=== PATIENT | female | born 1950 | race Caucasian/White ===

== ENCOUNTER → 2017-10-07 | Outpatient (CLI) | payer OTHER ==
[~2017-10-07] VITALS: Ht 161.3 cm; Wt 146.8 kg
[~2017-10-07] MED LIST: CHLORHEXIDINE GLUCONATE 2 % 1 PACK (2 CLOTHS) TOPICAL PRN; COMB0.2S EACH EYE; DORZ2SOL EACH EYE; INSULIN HUMAN REGULAR 1,000 UNITS/10 ML VIAL SQ PRN; LACTATED RINGER'S 1000 ML IV PRN; LIDOCAINE HCL 1% PF 5 ML SYRINGE OTHER ONE; METOPROLOL TARTRATE 25 MG TAB PO PRN; MONT10TA2 PO; NEXI40CA PO; POVIDONE IODINE 5% (ANTISEPSIS KIT) 4 APPLICATIONS EACH NARE PRN; PRED1SUS EACH EYE; PROPOFOL 200 MG/20 ML AMP IV ONE; SODIUM CHLORID 0.9% 500 ML IV PRN; TIMO0.5S30 EACH EYE; VITA250C3 CHEW; ZOLO50TA PO
[2017-10-07 11:03] VITALS: BP 124/72; PULSE 82; RESP 20; TEMP 97.9; O2SAT 95
--- NOTE | 2017-10-07 13:47 | MR ---
cc: Sergei Hooks MD, Gohar S MD 10/07/2017 PREOPERATIVE DIAGNOSIS: Colon cancer screening. POSTOPERATIVE DIAGNOSIS: Normal colonoscopy. PROCEDURE: Total colonoscopy. SURGEON: Sergei Hooks MD ANESTHESIA: MAC. INDICATION: This is a 67-year-old who has had a minor change in bowel habits and has not had colonoscopy for 15 years. Patient presents for colonoscopy. PROCEDURE DESCRIPTION: The Pentax EC-3890 colonoscope was introduced from the anus to the cecum. There was 3+ difficulty due to persistent sigmoid looping that was difficult to control. With pressure over the left lower quadrant and central abdominal areas, the instrument was passed fully into the cecum. The area behind the valve was difficult to visualize fully due to stool adherent to that area. The scope was withdrawn. The bowel prep was good other than intermittent areas of adherent liquid stool. There were no polyps identified. The patient tolerated the procedure well. PLAN: I recommend a followup exam in 10 years. Due to the patient's body size and the difficulty of this procedure, I recommend an x-ray evaluation at that time. MD MARIANNE Casas/KARINA , 01:35 PM , 01:46 PM
[2017-10-07 14:20] VITALS: BP 122/83; PULSE 85; RESP 20; TEMP 98.3; O2SAT 96
--- NOTE | 2017-10-07 22:55 | EKG ---
Date Performed: 10/07/2017 Time Performed: 10:53:19 PTAGE: 67 years EKG: Sinus rhythm NONSPECIFIC ST & T-WAVE ABNORMALITY BORDERLINE ECG NO PREVIOUS TRACING DOCTOR: Mic Gotti Interpretating Date/Time 10/07/2017 22:54:38
== END ==
LOC: HSDC 10:14
PROVIDERS: ATTEND Colon & Rectal Surgery
DX: R19.4 Change in bowel habit (principal); R94.31 Abnormal electrocardiogram [ECG] [EKG]
CPT/HCPCS: 93005